=== PATIENT | female | born 1950 | race Caucasian/White ===

== ENCOUNTER 2023-08-14 10:31 | Emergency (ER) | payer OTHER, SELFPAY ==
[2023-08-14 10:57] VITALS: BP 202/123
--- NOTE | 2023-08-14 11:04 | ED.GENMED ---
History of Present Illness
General
Chief Complaint: Flank Pain
Time Seen by Provider: 08/14/23 11:04
Travel History
Have you had any contact with someone who has COVID-19?: No
Do you have any symptoms of coronavirus? Fever > 100 degrees, chills, cough, shortness of breath, sore throat, loss of taste or smell, muscle aches, or headache?: No
History of Present Illness
History of Present Illness:
73-year-old female presents the emergency department for evaluation of urinary dribbling and left flank pain beginning abruptly this morning. Feels as though she cannot empty her bladder. Denies any hematuria. No fevers or chills
Past History
Past History
ED Past Medical History: Other (pulmonary embolism, diverticulitis. lupus.)
ED Past Surgical History: Other (vein surgery.)
Social History
Tobacco: Non-smoker
Alcohol: Daily (Spider vein surgery )
Drug: Other
Personal:
Living: other
Employment: Employed
Family History
Family History: Hypertension; Negative Early CAD
Review of Systems
Review of Systems
Allergies reviewed?: Yes
All Other Systems: ROS reviewed and negative except as documented in HPI and ROS
Phy Exam
Physical Exam
Physical Exam:
GEN: Appears uncomfortable, writhing in pain
Eyes: PERRLA, EOMs intact, no scleral icterus
HENT: NCAT, oral mucosa moist
Lungs: CTAB, no wheezes, rales, rhonchi, normal chest wall excursion
Cardiac: RRR, no M/R/G, no peripheral edema. Radial pulses 2+ bilat
Abdomen: S, NT, ND, NABS, no masses or hepatosplenomegaly
Neuro: AO x 3
MSK: No gross deformity or ecchymosis. No edema. No digital clubbing
Skin: No rashes, petechiae. Normal color, no pallor or jaundice.
Psych: Calm, cooperative, proper hygiene
Course
Orders/Labs/Results
Orders:
Orders
08/14/23 11:11
Ketorolac [Toradol] 15 mg IV NOW STA
08/14/23 11:12
CT Abd/pel Without Iv Or Oral Urgent
Comment:
Reason For Exam: L flank pain, urine retention
08/14/23 11:18
Complete Blood Count/With Diff Urgent
Comprehensive Metabolic Panel Urgent
Prothrombin Time Urgent
Urinalysis Reflex To Culture Urgent
Date Specimen was Collected: 08/14/23
Time Specimen was Collected: 11:16
Urine Microscopic Reflex Cult Urgent
Urine Culture Urgent
CHRISTINA Source: U
Specimen Description:
Date Specimen was Collected: 08/14/23
Time Specimen was Collected: 11:16
Abnormal Lab Results
08/14/23
11:18
MPV 11.6 H fL
(7.4-10.4)
PT 18.8 H Sec
(11.4-14.6)
Chloride 108 H mmol/L
(98-107)
Glucose 100 H mg/dl
(70-99)
Urine Ketones Trace A
(Negative)
Ur Occult Blood Reflex 1+ A
(Negative)
Leukocyte Esterase Rfl 2+ A
(Negative)
Urine RBC 3-6 A /HPF
(0-2)
Urine WBC (Reflex) 16-20 A /HPF
(0-5)
Urine Bacteria (Reflex) Few A
(Negative)
08/14/23 11:18
08/14/23 11:18
Vital Signs
Initial and Last Documented VS:
Initial Vital Signs
Temp Pulse Resp BP Pulse Ox
98.4 F 120 18 202/123 96
08/14/23 10:57 08/14/23 10:57 08/14/23 10:57 08/14/23 10:57 08/14/23 10:57
Last Documented Vital Signs
Temp Pulse Resp BP Pulse Ox
98.4 F 62 16 181/91 95
08/14/23 10:57 08/14/23 12:45 08/14/23 12:45 08/14/23 12:00 08/14/23 12:45
MDM/Problems Addressed
MDM/Problems Addressed:
Patient identified to have a small distal UVJ stone on the left explaining her symptoms. No evidence for infectious etiology. Her INR is subtherapeutic which is advised to increase her dosage of warfarin. Placed on short course of diclofenac
given the significant pain relief that she experienced after Toradol here as well as Flomax. ED return parameters discussed
*Critical Care Note
Total Time (30-74mins, 75-104mins- exclusive of procedures): Not Applicable
ED Attending Note
-
Portions of this chart may have been created with voice recognition software.� Occasional wrong word or��sound alike� substitutions may have occurred due to the inherent limitations of voice recognition software.
Discharge Plan
Departure
Patient Disposition: Home (Routine Discharge)
Date of Disposition: 08/14/23
Time of Disposition: 12:42
Patient with high blood pressure during this ER visit?: No
Discharge Problem:
Ureterolithiasis
Instructions: Kidney Stones (DC)
Prescriptions:
New
diclofenac sodium 75 mg tablet,delayed release (DR/EC)
75 mg PO BID Qty: 10 0RF
tamsulosin 0.4 mg capsule
0.4 mg PO HS Qty: 10 0RF
No Action
diazepam 5 MG tablet
5 mg PO HSPRN PRN (Reason: anxiety/sleep)
Patient Comments:
04/03/2020: last filled 03/19/20, 30 tabs for 30 days from [id number]
acetaminophen 325 MG tablet
650 mg PO BIDPRN PRN (Reason: mild pain)
atorvastatin 20 MG tablet
20 mg PO HS
warfarin [Jantoven] 4 MG tablet
4 mg PO QPM
cannabidiol [Epidiolex] 1 UNIT solution
3 puff inhalation HSPRN PRN (Reason: sleep)
Patient Comments:
04/03/2020: Pt has been using a vape lately, but also has a tincture that she has not used in 2 weeks, she does 1/4 dropper SL hsprn. Pt gets from [facility] [phone]
Referrals:
Sam Meza MD [Family Provider] -
Interventions
Interventions:
*Risk Screen - Suicide Last Done: 08/14/23 11:06
*General Assessment Last Done: 08/14/23 11:06
*Neglect/Abuse Screening Last Done: 08/14/23 11:06
ED- Fall Risk Assessment Last Done: 08/14/23 11:06
*ED COVID-19 Vaccine History Last Done: 08/14/23 10:57
*Nursing Disposition Last Done: 08/14/23 12:50
LY-Imfvda-Zfbaijvprf Assessment Last Done: 08/14/23 11:06
ED-Female Genitourinary Assessment Last Done: 08/14/23 11:06
Discharge Date and Time
Discharge Date/Time: 08/14/23 13:00
Print Language: MALAY
[2023-08-14 11:06] VITALS: BMI 41.1
[2023-08-14] MEDS: TORADOL 15 MG IV (11:17)
[2023-08-14 11:33] VITALS: BP 161/88
[2023-08-14 11:34] LABS: % Basophils 0.4 % (0-2); % Eosinophils 1.7 % (0-6); % Immature Granulocytes 0.4 % (0-0.5); % Lymphocytes 35.9 % (20.5-51.1); % Monocytes 7.7 % (1.7-9.3); % Neutrophils 53.9 % (42.2-75.2); Absolute Eosinophils 0.1 10^3/uL (0-0.7); Absolute Lymphocytes 2.9 10^3/uL (1.2-3.4); Absolute Monocytes 0.6 10^3/uL (0.1-0.6); Absolute Neutrophils 4.4 10^3/uL (1.4-6.5); Hematocrit 41.7 % (37.0-47.0); Hemoglobin 14.4 g/dL (12.0-16.0); Mean Corp Hgb Conc. 34.5 g/dL (33.0-37.0); Mean Corpuscular Hgb 29.5 pg (27.0-31.0); Mean Corpuscular Volume 85.5 fL (81.0-99.0); Mean Platelet Volume 11.6 fL (7.4-10.4); Nucleated Red Blood Cells % 0 %; Platelet Count 238 10^3/uL (130-400); Red Blood Cell Count 4.88 10^6/uL (4.20-5.40); Red Cell Dist. Width 13.9 % (11.5-14.5); White Blood Cell Count 8.2 10^3/uL (4.8-10.8)
[2023-08-14 11:40] LABS: Urine Albumin Trace (Neg - Trace); Urine Bilirubin Negative (Negative); Urine Character Clear (Clear); Urine Color Yellow; Urine Glucose Negative (Negative); Urine Ketone Trace (Negative); Urine Leukocyte 2+ (Negative); Urine Nitrite Negative (Negative); Urine Occult Blood 1+ (Negative); Urine Specific Gravity 1.025 (<1.030); Urine Urobilinogen Negative (Neg - 1+)
[2023-08-14 11:44] LABS: ALT (SGPT) 26 U/L (0-35); AST (SGOT) 19 U/L (14-36); Albumin 4.4 g/dl (3.5-5.0); Alkaline Phosphatase 83 U/L (38-126); Blood Urea Nitrogen 13 mg/dl (7-17); Calcium 9.6 mg/dl (8.4-10.2); Carbon Dioxide 23 mmol/L (22-30); Chloride 108 mmol/L (98-107); Estimated Creatinine Clearance 106 ml/min; Glucose 100 mg/dl (70-99); Potassium 4.2 mmol/L (3.5-5.1); Sodium 140 mmol/L (135-145); Total Bilirubin 0.6 mg/dl (0.2-1.3); Total Protein 7.2 g/dl (6.3-8.2); eGFR > 60.00
[2023-08-14 11:47] LABS: INR 1.59; PT 18.8 Sec (11.4-14.6)
[2023-08-14 12:00] VITALS: BP 181/91
[2023-08-14 12:09] LABS: Urine Squamous Cell 16-20 /LPF (Few)
[2023-08-14 12:10] LABS: Urine Bacteria Few (Negative); Urine White Cell 16-20 /HPF (0-5)
== END 2023-08-14 13:00 | disposition home or self-care (01) ==
LOC: EMR 10:31
PROVIDERS: Physician Assistant; EMERGENCY PHYSICIAN Emergency Medicine; FAMILY PHYSICIAN Family Medicine
DX: N20.2 Calculus of kidney with calculus of ureter (principal); M32.9 Systemic lupus erythematosus, unspecified; K57.92 Diverticulitis of intestine, part unspecified, without perforation or abscess without bleeding; Z86.711 Personal history of pulmonary embolism; Z79.01 Long term (current) use of anticoagulants
CPT/HCPCS: 99284; 96374; 74176; 80053; 81003; 81015; 85025; 85610; 87086

== ENCOUNTER → 2023-10-23 10:25 | Outpatient (REF) | payer OTHER, SELFPAY | LOC: RAD 10:25 | PROVIDERS: ATTENDING PHYSICIAN Family Medicine | DX: Z87.891 Personal history of nicotine dependence (principal) | CPT/HCPCS: 71271 ==

== ENCOUNTER → 2024-10-31 09:18 | Outpatient (REF) | payer OTHER, SELFPAY | LOC: RCS 09:18 | PROVIDERS: ATTENDING PHYSICIAN Family Medicine | DX: R01.1 Cardiac murmur, unspecified (principal) | CPT/HCPCS: 93306 ==

== ENCOUNTER → 2025-01-31 14:32 | Outpatient (REF) | payer OTHER, SELFPAY | LOC: RAD 14:32 | PROVIDERS: ATTENDING PHYSICIAN Family Medicine | DX: M16.10 Unilateral primary osteoarthritis, unspecified hip (principal) | CPT/HCPCS: 73502 ==